=== PATIENT | male | born 2000 | race Caucasian/White ===

== ENCOUNTER 2019-01-27 17:28 | Inpatient (IN) | payer OTHER ==
[2019-01-27 18:06] LABS: ABS Basophils 0 10^3/ul (0-0.2); ABS Eosinophils 0.1 10^3/ul (0-0.6); ABS Lymphocytes 1.6 10^3/ul (1.0-4.8); ABS Monocytes 0.5 10^3/ul (0-0.8); ABS Neutrophils 5.7 10^3/ul (1.5-7.7); ABS Nucleated RBC 0 10^3/ul; Eosinophil % 0.7 %; Hematocrit 45 % (36-46); Lymphocyte % 20.9 %; Mean Corpuscular HGB Conc 35 g/dL (31-36); Mean Corpuscular Hemoglobin 32 pg (27-31); Mean Corpuscular Volume 90 fL (80-94); Mean Platelet Volume 8.5 fL (7.4-10.4); Nucleated Red Blood Cells % 0; Platelet Count 198 10^3/uL (150-450); Red Blood Count 5.05 10^6 /uL (4.18-5.48); Red Cell Distribution Width 13 % (10.5-15); White Blood Count 7.9 10^3/uL (3.5-10.8)
[2019-01-27 18:25] LABS: ALT 13 U/L (7-52); AST 26 U/L (13-39); Albumin 4.7 g/dL (3.2-5.2); Albumin/Globulin Ratio 1.7 (1-3); Alkaline Phosphatase 72 U/L (34-104); Anion Gap 7 mmol/L (2-11); Blood Urea Nitrogen 22 mg/dL (6-24); CO2 Carbon Dioxide 27 mmol/L (22-32); Calcium 9.4 mg/dL (8.6-10.3); Chloride 106 mmol/L (101-111); EGFR African American 92.6 (>60); EGFR Non-African American 76.5 (>60); Globulin 2.7 g/dL (2-4); Glucose 91 mg/dL (70-100); Sodium 140 mmol/L (135-145); Total Protein 7.4 g/dL (6.4-8.9)
[2019-01-27 18:26] LABS: Acetaminophen < 15 mcg/mL; Alcohol < 10 mg/dL (<10); Salicylate < 2.50 mg/dL (<30)
--- NOTE | 2019-01-27 18:37 | ED ---
Medical Screening - HPI Summary HPI Summary: Patient complains of SI increasing over the past year, with worsening of symptoms over the past few days.. Denies history of SI prior to past year. Patient in his first year at [employer]. Denies ever acting on suicidal intent, denies plan. Denies any symptoms of illness, pain or injury. Denies EtOH consumption today, denies recreational drug use today. Denies medical history. - History of Current Complaint Chief Complaint: EDMentalHealth Stated Complaint: 945 PER POLICE Time Seen by Provider: 01/27/19 17:40 Onset/Duration: Started Weeks Ago Severity: moderate PMH/Surg Hx/FS Hx/Imm Hx Endocrine/Hematology History: Denies: Hx Anticoagulant Therapy Cardiovascular History: Denies: Hx Pacemaker/ICD History: Denies: Hx Dialysis Sensory History: Denies: Hx Eye Prosthesis Opthamlomology History: Denies: Hx Legally Blind EENT History: Denies: Hx Deafness Neurological History: Denies: Hx Dementia Psychiatric History: Denies: Hx Autism Infectious Disease History: No Infectious Disease History: Denies: Traveled Outside the [place] in Last 30 Days - Social History Occupation: Student Alcohol Use: None Hx Substance Use: No Smoking Status (MU): Never Smoked Tobacco Review of Systems Constitutional: Negative Eyes: Negative ENT: Negative Cardiovascular: Negative Respiratory: Negative Gastrointestinal: Negative Genitourinary: Negative Musculoskeletal: Negative Skin: Negative Neurological: Negative Positive: Depressed All Other Systems Reviewed And Are Negative: Yes Physical Exam - Summary Physical Exam Summary: Patient alert and oriented, somewhat flat affect. Cooperative, answers history of present illness questions. Lung sounds clear to auscultation bilaterally. Abdomen soft nontender. RRR Triage Information Reviewed: Yes Vital Signs On Initial Exam: Initial Vitals Temp Pulse Resp BP Pulse Ox 98.6 F 60 16 118/73 99 01/27/19 17:29 01/27/19 17:29 01/27/19 17:29 01/27/19 17:29 01/27/19 17:29 Vital Signs Reviewed: Yes Appearance: Positive: Well-Appearing Skin: Positive: Warm Head/Face: Positive: Normal Head/Face Inspection Eyes: Positive: Normal ENT: Positive: Normal ENT inspection Neck: Positive: Supple Respiratory/Lung Sounds: Positive: Clear to Auscultation Cardiovascular: Positive: Normal Abdomen Description: Positive: Nontender Musculoskeletal: Positive: Normal Neurological: Positive: Normal Psychiatric: Positive: Normal AVPU Assessment: Alert - Omayra Coma Scale Best Eye Response: 4 - Spontaneous Best Motor Response: 6 - Obeys Commands Best Verbal Response: 5 - Oriented Coma Scale Total: 15 Diagnostics - Vital Signs Vital Signs Temp Pulse Resp BP Pulse Ox 01/27/19 17:29 98.6 F 60 16 118/73 99 - Laboratory Lab Results: Lab Results 01/27/19 01/27/19 Range/Units 18:01 18:01 WBC 7.9 (3.5-10.8) 10^3/uL RBC 5.05 (4.18-5.48) 10^6 /uL Hgb 16.0 (14.0-18.0) g/dL Hct 45 (36-46) % MCV 90 (80-94) fL MCH 32 H (27-31) pg MCHC 35 (31-36) g/dL RDW 13 (10.5-15) % Plt Count 198 (150-450) 10^3/uL MPV 8.5 (7.4-10.4) fL Neut % (Auto) 72.3 % Lymph % (Auto) 20.9 % Doniphan % (Auto) 5.8 % Eos % (Auto) 0.7 % Baso % (Auto) 0.3 % Absolute Neuts (auto) 5.7 (1.5-7.7) 10^3/ul Absolute Lymphs (auto) 1.6 (1.0-4.8) 10^3/ul Absolute Monos (auto) 0.5 (0-0.8) 10^3/ul Absolute Eos (auto) 0.1 (0-0.6) 10^3/ul Absolute Basos (auto) 0 (0-0.2) 10^3/ul Absolute Nucleated RBC 0 10^3/ul Nucleated RBC % 0 Sodium 140 (135-145) mmol/L Potassium 4.0 (3.5-5.0) mmol/L Chloride 106 (101-111) mmol/L Carbon Dioxide 27 (22-32) mmol/L Anion Gap 7 (2-11) mmol/L BUN 22 (6-24) mg/dL Creatinine 1.22 H (0.67-1.17) mg/dL Est GFR ( Amer) 92.6 (>60) Est GFR (Non-Af Amer) 76.5 (>60) BUN/Creatinine Ratio 18.0 (8-20) Glucose 91 (70-100) mg/dL Calcium 9.4 (8.6-10.3) mg/dL Total Bilirubin 1.00 (0.2-1.0) mg/dL AST 26 (13-39) U/L ALT 13 (7-52) U/L Alkaline Phosphatase 72 (34-104) U/L Total Protein 7.4 (6.4-8.9) g/dL Albumin 4.7 (3.2-5.2) g/dL Globulin 2.7 (2-4) g/dL Albumin/Globulin Ratio 1.7 (1-3) TSH Pending Salicylates < 2.50 (<30) mg/dL Acetaminophen < 15 mcg/mL Serum Alcohol < 10 (<10) mg/dL Result Diagrams: 01/27/19 18:01 01/27/19 18:01 Lab Statement: Any lab studies that have been ordered have been reviewed, and results considered in the medical decision making process. Course/Dx - Course Course Of Treatment: Patient complains of SI increasing over the past year. Denies prior history of SI. Patient in his first year at [facility] [employer]. Denies acting on suicidal intent, denies plan. Denies any symptoms of illness, pain or injury. Denies EtOH consumption today, denies recreational drug use today. Denies medical history. Physical exam unremarkable. Creatinine slightly elevated 1.22. Labs otherwise unremarkable. Per Dr Sheffield, mental health recommendation is involuntary admission to [facility] for unspecified depressive disorder - Diagnoses Provider Diagnoses: Depressive disorder, not elsewhere classified Discharge - Sign-Out/Discharge Documenting (check all that apply): Patient Departure Patient Received Moderate/Deep Sedation with Procedure: No - Discharge Plan Condition: Stable Disposition: [facility]YCHIATRIC FACILITY[facility] - Billing Disposition and Condition Condition: STABLE Disposition: Psychiatric Facility [facility]
[2019-01-27 18:42] LABS: TSH (Thyroid Stimulating Horm) 1.47 mcIU/mL (0.34-5.60)
[2019-01-27 19:46] LABS: Urine Appearance Clear; Urine Bilirubin Negative (Negative); Urine Blood Negative (Negative); Urine Color Yellow; Urine Glucose Negative (Negative); Urine Ketones Trace (Negative); Urine Nitrite Negative (Negative); Urine Protein Negative (Negative); Urine Specific Gravity 1.032 (1.010-1.030); Urine Urobilinogen Negative (Negative)
[2019-01-27 20:04] LABS: Urine Benzodiazepine Screen None Detected (None Detect); Urine Opiates Screen None Detected (None Detect)
[2019-01-28] MEDS ORDERED: Acetaminophen TAB* 325 MG PO PRN (01:13)
[2019-01-28] MEDS ORDERED: Al Hydrox/Mg Hydrox/Simet LIQ* 30 ML UDC PO PRN (01:13)
[2019-01-28 08:19] LABS: HDL Cholesterol 42.4 mg/dL
--- NOTE | 2019-01-28 08:53 | HP ---
H&P (Free Text) History and Physical: Justification for admission: Immediate Safety. CC " I thought about jumping off a gorge" 18 year old male with no prior psychiatric history was brought to [facility] by campus safety after he expressed suicidal ideation to his school counselor. He denied access to firearms or stockpiles of medications. He reported being under stress from school and doesnt know how to deal with it other than thinking out ending his life. He expressed that he has to get perfect grades if he wants to do physical therapy. He said this is the lowest he has ever felt in his life and doesnt see a way out. He was unable to provide reasons he wants to live. He reported that it is hard to talk to his parents because they do not understand what he is going through. The patient denied homicidal ideation intent or plan. The patient denied auditory and/ or visual hallucinations. A family meeting took place with the patient and father present. The patient plans to go to the groups and develop coping strategies to deal with the demands of stress. Bipolar Denied symptoms of anoop such as having many ideas at once. Denied increased talkativeness where no one can interrupt. Denied feeling irritable most of the time while having an persistent abundance of energy most of the day without the use of energy drinks, stimulants, or recreational drug use. Denied an increase in intensity in goal directed activities. Denied having the decreased need to sleep for days , having prolonged elevated heighted mood , or feeling on top of the world. Denied impulsive risky sexual encounters. Denied spending money recklessly , going on spending sprees wiping out savings. Denied impulsively traveling out of town or country, having super hassan, and unrealistic wealth or fame. MDD Reported feeling depressed or having diminished interest in hobbies or interests which were present in the past , for most of the time, but not lasting more than 2 weeks. Reported having feelings of hopelessness and worthless. Reported feeling tired throughout the day. Reported thinking of having no purpose in life. Anxiety Reported having test anxiety. having symptoms of anxiety such as having times where heart feels that it is beating out of chest , sweaty palms, or shallow breathing. Denied having uncomfortable or intrusive thoughts. Denied feeling restless, high strung, or worrying too much most of the time. Psychosis Does not endorse hearing things that other people do not hear or seeing things other people do not see. Denied feeling that TV is making references. Denied feeling that people are spying , following , or reading their thoughts. Phobias: Patient denied having excessive fear of a particular thing or situation. Eating disorders: Patient denied having excessive eating habits or feelings of guilt after eating. Denied repeated episodes of self induced vomiting after eating. PTSD Denied flashbacks, nightmares and avoidance of a prior traumatic event. PAST PSYCHIATRIC HISTORY: Prior Diagnosis :None History of past Psychiatric Hospitalizations: No prior psychiatric admission. History of past suicide/homicide attempts : Denied past suicide attempts. Denied past homicidal incidents. Outpatient follow-up: [facility] Medications: No Past trials of medications Guardianship: None. FAMILY HISTORY: - Suicide: Denied family history of suicide. - Mental illness: Denied a history of mental health in immediate family members. - Substance abuse: Denied substance abuse among family members. SUBSTANCE ABUSE HISTORY: Denied using alcohol, tobacco, heroin and cocaine other illicit substances. Denied abusing pills not prescribed . Denied past Substance abuse treatment. SOCIAL HISTORY: Born in [facility] and raised by father and mother. 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 Single no children and lives on campus at [employer]. - Legal history: Denied - service history: Denied PAST MEDICAL HISTORY: Denied heart disease, diabetes, cancer and/ or other medical conditions. - Allergies: Denied drug or other allergies. Physical Exam: Please see ED note Mental Status Exam on Admission APPEARANCE : 18 year old males who appears stated age. Patient is not malodourous, and appears to have fair hygiene and grooming. BEHAVIOR: Cooperative , calm EYE CONTACT: Fair PSYCHOMOTOR ACTIVITY: No psychomotor agitation or retardation. MOVEMENTS: No abnormal movements observed. SPEECH : Normal rate, rhythm, volume and tone. MOOD : "sad " AFFECT : Type is depressed Range is restricted depth is shallow Mood congruent Labile THOUGHT PROCESS: formulated and organized in a logical, linear goal directed manner. No flight of ideas , neologism (made up words) , perseveration , tangential , loose associations , or circumstantiality. THOUGHT CONTENT: no delusions, preoccupations, obsessions, phobias or preoccupations. PERCEPTION: No current auditory or visual hallucinations. Doesnt appear to be responding to internal cues. No evidence of depersonalization , de-realization, or illusions SUICIDALITY Recent suicidal ideation HOMICIDALITY Denied homicidal ideation, intent or plan. Insight/judgment: Poor insight and judgment ORIENTATION: Oriented to self, location, and time. Diagnosis on Admission: Unspecified Depressive Disorder Assessment: 18 year old male with no prior psychiatic history came to the hospital after expressing suicidal ideation Plan #Admit to [facility], Q15 minute observation. Start regular diet. Encourage participation in activities on the milieu. #Patient evaluated in ED and was determined by the emergency room Physician to be medically stable for admission to the [facility]. # Justification for Admission: For immediate safety per outlined in the [facility] Hygiene Code. # The patient requires inpatient admission at this time to assure safety, receive treatment and work toward stabilization. # Labs ordered: CBC, CMP, UDS, TSH, HBA1c, TSH, Toxicology screen, Urine analysis, and lipid profile. # Obtain collateral information once release is signed. # Collaboration with Social Work to assist with disposition and after care. Patient doesnt require to start medications at this time, Patient would benefit from CBT therapy #Goals before discharge include: Improve coping skills Tentative Discharge Thursday Sodium 140 mmol/L (135-145) 01/27/19 18:01 Potassium 4.0 mmol/L (3.5-5.0) 01/27/19 18:01 BUN 22 mg/dL (6-24) 01/27/19 18:01 Creatinine 1.22 mg/dL (0.67-1.17) H 01/27/19 18:01 Calcium 9.4 mg/dL (8.6-10.3) 01/27/19 18:01 AST 26 U/L (13-39) 01/27/19 18:01 ALT 13 U/L (7-52) 01/27/19 18:01 Triglycerides 122 mg/dL 01/28/19 07:28 Cholesterol 139 mg/dL 01/28/19 07:28 LDL Cholesterol 72 mg/dL 01/28/19 07:28 Vital Signs 01/27/19 01/27/19 01/27/19 17:29 19:40 21:55 Temperature 98.6 F 97.9 F Pulse Rate 60 63 52 Respiratory 16 18 18 Rate Blood Pressure 118/73 118/70 124/71 (mmHg) O2 Sat by Pulse 99 100 100 Oximetry 01/28/19 01/28/19 01/28/19 00:31 00:44 03:39 Temperature 0 F 97.6 F Pulse Rate 0 60 Respiratory 16 16 16 Rate Blood Pressure 0/0 123/74 (mmHg) O2 Sat by Pulse 0 100 Oximetry 01/28/19 01/28/19 07:49 14:33 Temperature 98.3 F Pulse Rate 48 Respiratory 16 16 Rate Blood Pressure 123/62 (mmHg) O2 Sat by Pulse 99 Oximetry
[2019-01-28] MEDS: Vitamin THERAPEUTIC TAB PO SCH (09:20)
[2019-01-29] MEDS: Vitamin THERAPEUTIC TAB PO SCH (10:16)
--- NOTE | 2019-01-29 16:38 | PN ---
Subjective - Subjective Date of Service: 01/29/19 Service Type: 01471 Hosp care 35 min high complexity Subjective: Met with Jose Carlos and his dad. Nurses reported on my arrival that Jose Carlos's dad was angry with our decision to admit and then keep him in the hospital. When I met with him he calmed down verbalize his understanding of the reasons for ongoing hospitalization. Jose Carlos is not willing to consider any meds for his depression and would like to be discharged as early as Mon. Denies any SI or HI today. Objective - General Observations Appearance: Neat, Well Groomed Stature: WNL Posture: WNL Eye Contact: Average Behavior/Activity: WNL - Interaction Observations Attitude Towards Examiner: Demanding Attitude Towards Parent/Guardian: Positive Interaction Stated Mood: Irritable, Anxious Affect: Restricted Speech Pattern/Tone: Clear, Appropriate, Normal Volume Thought Process: Coherent, Goal Directed Perception: WNL Thought Content: WNL Hallucination Type: None Delusion Type: None - Cognitive Function Orientation: A&O x 4 Level of Consciousness: Awake, Alert Cognition: WNL Estimated Intelligence: Normal Insight: Mostly Blames Others for Problems Judgment Within Normal Limits: No Ability to Make Reasonable Decisions: Serverely Impaired - Medication Compliance Cooperative with Inpatient Medication Regimen: No - Group Participation Participates in Group Activities: No Assessment - Assessment Merits Inpatient Hospitalization: For Immediate Safety, Diagnosis Determination , To Initiate Treatment, Pending Safe DC Plan Clinical Impression: Jose Carlos was admitted due to suicidal ideation in the context of severe stress and depression. Although he remains anxious and depressed he doesn't believe he need hospitalization and treatments. Plan - Plan Treatment Plan: Name: TAWNYA APPIAH Birthdate: 2000 [id number] Continued Medication Management: Consider Medication Medications: Current Medications Acetaminophen (Tylenol Tab*) 650 mg PO Q4H PRN PRN Reason: PAIN or TEMP > 101 F Al Hydrox/Mg Hydrox/Simethicone (Maalox Plus*) 30 ml PO Q4H PRN PRN Reason: INDIGESTION Multivitamins (Theragran Tab*) 1 tab PO DAILY [facility] Last Admin: 01/29/19 10:16 Dose: Not Given - Discharge Plan Discharge Plan: Outpatient Follow Up Outpatient Program: Private Clinician(s)
[2019-01-30] MEDS: Vitamin THERAPEUTIC TAB PO SCH (10:32)
[2019-01-31 08:20] VITALS: BP 125/71
--- NOTE | 2019-01-31 08:42 | DS ---
Subjective - Subjective Service Types: [address] [facility] Day Mgmt complex over 30 min Discharge Date: 01/31/19 Subjective: CC: "I am learning how to deal with stress" Patient stated that he looks forward to returning. He reported that he went to the groups and got the most out of being in the hospital. He said that he met a peer on the unit with a similar difficulties and was able to share his frustrations with school and did not feel alone. He looks forward to getting back to school and seeing his friends. -------- Justification for admission: Immediate Safety. CC " I thought about jumping off a gorge" 18 year old male with no prior psychiatric history was brought to [facility] by campus safety after he expressed suicidal ideation to his school counselor. He denied access to firearms or stockpiles of medications. He reported being under stress from school and doesnt know how to deal with it other than thinking out ending his life. He expressed that he has to get perfect grades if he wants to do physical therapy. He said this is the lowest he has ever felt in his life and doesnt see a way out. He was unable to provide reasons he wants to live. He reported that it is hard to talk to his parents because they do not understand what he is going through. The patient denied homicidal ideation intent or plan. The patient denied auditory and/ or visual hallucinations. A family meeting took place with the patient and father present. The patient plans to go to the groups and develop coping strategies to deal with the demands of stress. Bipolar Denied symptoms of anoop such as having many ideas at once. Denied increased talkativeness where no one can interrupt. Denied feeling irritable most of the time while having an persistent abundance of energy most of the day without the use of energy drinks, stimulants, or recreational drug use. Denied an increase in intensity in goal directed activities. Denied having the decreased need to sleep for days , having prolonged elevated heighted mood , or feeling on top of the world. Denied impulsive risky sexual encounters. Denied spending money recklessly , going on spending sprees wiping out savings. Denied impulsively traveling out of town or country, having super hassan, and unrealistic wealth or fame. MDD Reported feeling depressed or having diminished interest in hobbies or interests which were present in the past , for most of the time, but not lasting more than 2 weeks. Reported having feelings of hopelessness and worthless. Reported feeling tired throughout the day. Reported thinking of having no purpose in life. Anxiety Reported having test anxiety. having symptoms of anxiety such as having times where heart feels that it is beating out of chest , sweaty palms, or shallow breathing. Denied having uncomfortable or intrusive thoughts. Denied feeling restless, high strung, or worrying too much most of the time. Psychosis Does not endorse hearing things that other people do not hear or seeing things other people do not see. Denied feeling that TV is making references. Denied feeling that people are spying , following , or reading their thoughts. Phobias: Patient denied having excessive fear of a particular thing or situation. Eating disorders: Patient denied having excessive eating habits or feelings of guilt after eating. Denied repeated episodes of self induced vomiting after eating. PTSD Denied flashbacks, nightmares and avoidance of a prior traumatic event. PAST PSYCHIATRIC HISTORY: Prior Diagnosis :None History of past Psychiatric Hospitalizations: No prior psychiatric admission. History of past suicide/homicide attempts : Denied past suicide attempts. Denied past homicidal incidents. Outpatient follow-up: [facility] Medications: No Past trials of medications Guardianship: None. FAMILY HISTORY: - Suicide: Denied family history of suicide. - Mental illness: Denied a history of mental health in immediate family members. - Substance abuse: Denied substance abuse among family members. SUBSTANCE ABUSE HISTORY: Denied using alcohol, tobacco, heroin and cocaine other illicit substances. Denied abusing pills not prescribed . Denied past Substance abuse treatment. SOCIAL HISTORY: Born in [facility] and raised by father and mother. 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 Single no children and lives on campus at [employer]. - Legal history: Denied - service history: Denied PAST MEDICAL HISTORY: Denied heart disease, diabetes, cancer and/ or other medical conditions. - Allergies: Denied drug or other allergies. Physical Exam: Please see ED note Mental Status Exam on Admission APPEARANCE : 18 year old males who appears stated age. Patient is not malodourous, and appears to have fair hygiene and grooming. BEHAVIOR: Cooperative , calm EYE CONTACT: Fair PSYCHOMOTOR ACTIVITY: No psychomotor agitation or retardation. MOVEMENTS: No abnormal movements observed. SPEECH : Normal rate, rhythm, volume and tone. MOOD : "sad " AFFECT : Type is depressed Range is restricted depth is shallow Mood congruent Labile THOUGHT PROCESS: formulated and organized in a logical, linear goal directed manner. No flight of ideas , neologism (made up words) , perseveration , tangential , loose associations , or circumstantiality. THOUGHT CONTENT: no delusions, preoccupations, obsessions, phobias or preoccupations. PERCEPTION: No current auditory or visual hallucinations. Doesnt appear to be responding to internal cues. No evidence of depersonalization , de-realization, or illusions SUICIDALITY Recent suicidal ideation HOMICIDALITY Denied homicidal ideation, intent or plan. Insight/judgment: Poor insight and judgment ORIENTATION: Oriented to self, location, and time. Diagnosis on Admission: Unspecified Depressive Disorder Assessment: 18 year old male with no prior psychiatic history came to the hospital after expressing suicidal ideation Diagnosis on Discharge: Unspecified Depressive disorder, Tobacco use disorder Condition at the time of discharge: At the time of discharge patient showed improvement of sleep and appetite. The patient was not a danger to self or others. The patient denied suicidal ideation , intent or plan. The patient denied homicidal targets, ideation, intent or plan. This patient participated in psychosocial rehabilitation and gained some insight into problems. The patient gained insight into mental illness, triggers, and treatment. Therapy Resources were offered to the patient. The patient plans to attend follow up care with the follow up arrangements that were discussed and put in place. Patient was asked to keep appointments as scheduled, have routine follow up care with their primary care physician and refrain from any use of alcohol or drugs. Objective - Appearance Appearance: Well Developed/Nourished Dysmorphic Features: No Hygiene: Normal Grooming: Well Kept - Behavior Psychomotor Activities: Normal Exhibits Abnormal Movement: No - Attitude and Relatedness Attitude and Relatedness: Cooperative Eye Contact: Good - Speech Quality: Unpressured Latencies: Normal Quantity: Appropriate - Mood Patient's Decription of Mood: "Good" - Affect Observed Affect: Non-labile Affect Consistent with: Euthymia - Thought Process Patient's Thought Process: Coherent Thought Content: No Passive Wish, No Suicidal Planning, No Homicidal Ideation, No Paranoid Ideation - Sensorium Experiencing Hallucinations: No, Sensorium is Clear Type of Hallucinations: Visual: No, Auditory: No, Command: No - Level of Consciousness Level of Consciousness: Alert Orientation: Yes Intact, Yes Orientated to Time, Yes Orientated to Place, Yes Orientated to Person - Impulse Control Impulse Control: Tenuous - Insight and Judgement Insight and Judgement: Fair - Group Participation Particating in Group Activities: Yes - Medication Management Medication Management Adherence: No Treatment Course & Assessment Clinical Course & Impression: Hospital course part A: 18 year old male with no prior psychiatic history came to the hospital after expressing suicidal ideation. Hospital course part B: Labs ordered included CBC, CMP, UDS, TSH, HBA1c, TSH, Toxicology screen, Urine analysis, and lipid profile. Labs were reviewed and did not require the need for further evaluation. Vital signs were monitored during the course of admission. MMPI was ordered and indicated features of mostly anxiety. The patient was admitted to the adult behavioral unit and placed on 15 minute check for safety. At a later time the patient was on Q30 minute observation and staff pass privileges. With those limits being extended , there were no occurrence of behavioral incidents. The patient did well on the unit and went to groups. Interacted with peers had adequate sleep and regular appetite. Group therapy and services were offered. The risks, benefits, and alternative treatment options were discussed as well as of the risks of refusing treatment. Follow up care appointments were put in place for follow up care within 7 days of discharge. Improvements in patient from the time of admission include: Improved affect, sleep and decrease in anxiety. No longer suicidal and no longer having feelings of hopelessness. The patient expressed readiness for discharge home. The patient presents with a broader range of affect, and the absence of depressed mood, delusions, perceptual disturbances. The patient denied suicidal and or homicidal ideation intent or plan. Overall, the patient responded well to inpatient treatment as evidenced by their report of strengthening of coping mechanisms, reduced distress, and more positive outlook on circumstances. Of note there was an improvement of recognizing how emotional state can effect mood and behavior. Safety precautions were put in place which included involving the patient and their family to closely monitor for changes in mental state. In addition, implementing follow up care, screening for the need to remove/securing firearms , weapons and stockpile of medications. Patient/ family instructed to immediately call 911 should any safety concerns arise. The patient was advised of the 24 hour / 7 days a week availability of the emergency room and to call 911 in the event of an emergency such as being suicidal and/ or homicidal. The patient was informed of the contact information for [facility], [facility], National Suicide Prevention Lifeline, [facility], Alcoholics Anonymous, and [facility]. No Medications started as patient refused to take medication. His current presentation would be best treated with Cognitive behavioral therapy. He declined tobacco cessation resources and nicotine replacement while on the unit. Family meeting with his father took place and the patient and his father spoke about the ways Robert deals with stress. Before discharge his father was in agreement with the plan for discharge. Patient plans to engage in more self care during the times of stress. Patient wants to live for family himself and to be a physical therapist. Patient will be discharged to his father and [facility] Follow up appointment at [facility] services Patient informed of follow up appointment times. See more details for follow of care in discharge plan. Risk factors: Age, single, history of depression Protective factors: Currently no suicidal ideation, intent or plan. No prior history of suicide attempt. Has strong support system. No history of service. Currently no feelings of hopelessness, not in an occupation of social isolation, doesnt have multiple medical conditions, no family history of suicide, doesnt have access to firearms. Doesnt have command hallucinations and or psychotic features at this time. No history of substance abuse. No history of alcohol abuse. Not a anniversary of a loss of a loved one. No changes in relationship status, housing, job, or school. Currently future orientated. Patient engaged in treatment. Merits Inpatient Hospitalization: No Clear for Discharge: Adequate Clinical Respons Discharge Planning - Discharge Planning Discharge Plan: Outpatient Follow Up Outpatient Program: [facility] Recommendations for Continuing Care: Psychotherapy Medications: Current Medications Acetaminophen (Tylenol Tab*) 650 mg PO Q4H PRN PRN Reason: PAIN or TEMP > 101 F Al Hydrox/Mg Hydrox/Simethicone (Maalox Plus*) 30 ml PO Q4H PRN PRN Reason: INDIGESTION Multivitamins (Theragran Tab*) 1 tab PO DAILY CONCETTA Last Admin: 01/30/19 10:32 Dose: 1 tab Discharge Planning: Prescriptions provided for discharge [] Yes [x] No Follow up care details as per social work arrangements. Patient response to discharge plan: [x] eager for discharge [] agreeable with discharge plan [] ambivalent about discharge [] disagrees with discharge today
[2019-01-31] MEDS: Vitamin THERAPEUTIC TAB PO SCH (09:44)
== END 2019-01-31 11:15 | disposition home or self-care (01) | DRG 754 ==
LOC: ED 17:28 → BSU 22:15
PROVIDERS: ADMIT Psychiatry & Neurology Psychiatry; ATTEND Psychiatry & Neurology Psychiatry
DX: F32.9 Major depressive disorder, single episode, unspecified (principal); R45.851 Suicidal ideations; R40.2362 Coma scale, best motor response, obeys commands, at arrival to emergency department; R40.2142 Coma scale, eyes open, spontaneous, at arrival to emergency department; R40.2252 Coma scale, best verbal response, oriented, at arrival to emergency department; Z72.0 Tobacco use
CPT/HCPCS: 36415; 80053; 80061; 80307; 80320; 80329; 81003; 83036; 84443; 85025; 99222; 99233; 99238; 99285; A9270-GY; G0480